=== PATIENT | male | born 1950 | race Caucasian/White ===

== ENCOUNTER 2020-03-24 06:53 | Day surgery (SDC) | payer MEDICARE, SELFPAY ==
[2020-03-24 07:10] VITALS: BP 126/81; PULSE 48; RESP 20; TEMP 36.3; O2SAT 98
[2020-03-24] MEDS: Tropicam./Phenyleph. (1/2.5%) 5 ML BTL ×3 (07:23→07:37)
[2020-03-24] MEDS: Balanced Salt Soln.-PLUS 500 ML BAG (08:45)
[2020-03-24] MEDS: Duovisc Viscoelastic System EACH 1 EACH (08:45)
[2020-03-24] MEDS: Lidocaine 1% Pres-Free 5 ML VIAL (08:47)
[2020-03-24] MEDS: Lidocaine 2% Jelly 6 ML SYR (08:47)
[2020-03-24] MEDS: Tetracaine 0.5% 4 ML BTL (08:50)
[2020-03-24] MEDS: Povidone-Iodine Ophth 30 ML BTL (08:50)
--- NOTE | 2020-03-24 09:16 | W.PM.DSUDISC ---
Discharge Plan Disposition Patient Disposition: HOME Condition: Good Discharge Details Attending Provider: Sandro Gomez Primary Care Provider: Temi Dominguez Home Meds and New Rx's Prescriptions: No Action tadalafil [Cialis] 20 mg Tablet 20 mg PO DIRECTED PRNRF: 0 omeprazole 20 mg Tablet,Delayed Release (Dr/Ec) 20 mg PO DAILY RF: 0 Discharge Instructions Stand Alone Forms: Post-op Topical Cataract Discharge Orders Discharge Orders: Discharge Order (Routine); Ordered 03/24/20 Ordered By: Sandro Gomez DS: Diagnosis Discharge Diagnosis (1) Combined form of age-related cataract, left eye: Status: Resolved
--- NOTE | 2020-03-24 09:17 | ROE_ITS ---
Date of service: 03/24/20 Time of Service: 09:17 Operative Note Operative Note DATE OF PROCEDURE: 03/24/20 PRE-OP DIAGNOSIS: Nuclear/cortical cataract, left eye Poorly dilating pupil, left eye Myopia, with desire to remain myopic after surgery POST-OP DIAGNOSIS: same PROCEDURE: Cataract extraction by phacoemulsification with intraocular lens implantation, left eye, with pupillary expansion device SURGEON: Sandro Gomez ANESTHESIA: MAC and local (sub-tenon's anesthetic infiltration) ESTIMATED BLOOD LOSS: 0 PATHOLOGY: none sent COMPLICATIONS: None Patient was transported to: same day Patient's condition: stable Implants: [employer] Tecnis [id number] Indications: Progressive decreased vision, left eye Procedure Description: CATARACT SURGERY OPERATIVE REPORT PREOPERATIVE DIAGNOSIS: 1. Nuclear/cortical cataract, left eye 2. Poorly dilating pupil, left eye POSTOPERATIVE DIAGNOSIS: Same OPERATION: 1. Cataract extraction using phacoemulsification with posterior chamber intraoc ular lens implant, left eye. 2. 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 He is myopic in the left eye and has developed asymptomatic cataract there. He desires to remain myopic after cataract surgery so he can read his phone without glasses. The option of cataract surgery was offered to the patient and he wished to proceed. PROCEDURE: The correct surgical eye was identified and marked as the left eye and the pupil was dilated in the preoperative area using mydriatics, cycloplegics, and NSAIDS (except in aspirin allergic patients). The dilated pupil size was 4.0 mm. Oral sedation was administered in the form of an Imprimis MKO Melt (midazolam 3mg/ketamine 25mg/ondansetron 2mg). The patient was brought to the operating room where cardiopulmonary monitoring was instituted and surgical time-out was performed, confirming the correct operative eye and IOL power. Topical anesthesia was administered and ophthalmic povidone-iodine 5% was instilled into the conjunctival fornices. Lidocaine gel was applied to the cornea and the autumn-ocular area was prepped with Betadine 10% solution and draped in the usual sterile fashion for intraocular surgery, including an aperture drape. A Tegaderm transparent film dressing was cut in half and used to cover the lashes and lid margins. Care was taken to sequester the lashes and lid margins under the Tegaderm dressing. A lid speculum was placed between the lids of the operative eye and the Elana-Svetlana operating microscope was maneuvered into position. Chau scissors were then used to make a conjunctival buttonhole approximately 6mm posterior to the limbus in the inferonasal quadrant. Blunt dissection was carried out to expose bare sclera, and a blunt-tipped sub-tenon?s anesthesia cannula was introduced and passed posteriorly along the globe where non- preserved plain lidocaine was injected into posterior sub-Tenon?s space. A sideport knife was used to make a paracentesis port superiorly/superiortemporally. Intraocular phenylephrine/lidocaine was injected into the anterior chamber. The anterior chamber was then filled with viscoelastic. A 2.4mm keratome knife was used to create a half-thickness groove at the limbus and then to construct a three-plane near-clear corneal tunnel extending 2.0mm into clear cornea at the temporal position. A 7.0 mm Malyugin Ring was then inserted into the pupillary space and engaged with the Kuglen hook. A flap was raised on the anterior capsule and capsulorhexis forceps were used to complete a continuous curvilinear capsulorhexis of 5.5 mm. Some zonular laxity was noted. Balanced salt solution was then used to perform cortical cleaving hydrodissection and nuclear hydrodelineation until the lens could be freely rotated within the capsular bag. The lens nucleus was then disassembled and removed within the capsular bag and iris plane using phacoemulsification. Residual cortical material was removed using the 45-degree angled silicone I/A tip with 0.3mm port. The posterior capsule was carefully polished to remove as much residual lens epithelial cells as safely possible. The capsular bag was then inflated and the anterior chamber deepened with viscoelastic. The lens implant described above was inserted into the capsular bag using the [employer] [place] Injector. A Kuglen hook was used to dial the IOL into position. The Malyugin Ring was removed in the reverse order of its insertion. Residual viscoelastic was then removed first from posterior to the IOL, then from the anterior chamber using the I/A handpiece. The lens implant was noted to center nicely within the capsular bag. The incisions were stromally hydrated, and the anterior chamber was reformed using BSS. Then 0.5cc of moxifloxacin 1.0mg/ml were injected into the capsular bag and anterior chamber. The incisions were checked with a Weck spear and found to be secure. Several drops of ophthalmic povidone-iodine 5% were then applied to the eye followed by two drops of Imprimis combination prednisolone/moxifloxacin/nepafenac solution. The drapes were removed and a clear plastic protective eye shield was placed over the eye. The patient was then returned to [facility] in stable condition.
[2020-03-24 09:44] VITALS: PULSE 53; RESP 16; TEMP 36.7; O2SAT 99
== END 2020-03-24 10:04 | disposition home or self-care (01) ==
PROVIDERS: PCP Family Medicine; Visit Provider Ophthalmology
PROC: (CPT 66982; principal; 2020-03-24 08:30)
DX: H25.012 Cortical age-related cataract, left eye (principal); H25.12 Age-related nuclear cataract, left eye; H57.09 Other anomalies of pupillary function; H52.12 Myopia, left eye; Z98.41 Cataract extraction status, right eye; Z96.1 Presence of intraocular lens; K21.9 Gastro-esophageal reflux disease without esophagitis
CPT/HCPCS: 66982; V2632